=== PATIENT | female | born 1985 | race Caucasian/White ===

== ENCOUNTER 2020-08-18 17:26 | Emergency (ER) | payer OTHER ==
[~2020-08-18 17:26] MED LIST: FLAGYL500 MG PO; IBUPROFEN800 MG PO; LEVAQUIN500 MG PO; MAXALT10 MG PO; NORCO 5-325 TA1 EACH PO; RIZATRIPTAN10 MG PO; VISTARIL25 MG PO
[2020-08-18 20:09] LABS: HEMOGLOBIN 12.1 gm/dl (12.3-15.3); RED BLOOD COUNT 4.02 M/UL (4.00-5.10); WHITE BLOOD COUNT 15.7 K/UL (4.5-11.0)
[2020-08-18 20:28] LABS: BUN/CREATININE RATIO 9 (0-10)
[2020-08-18] MEDS ORDERED: AUGMENTIN 875-1 EACH PO (23:05)
[2020-08-18] MEDS ORDERED: ZOFRAN4 MG PO (23:05)
== END 2020-08-19 00:38 | disposition home or self-care (01) ==
LOC: ER1 17:26
PROVIDERS: Family Medicine
DX: K57.32 Diverticulitis of large intestine without perforation or abscess without bleeding (principal); F17.210 Nicotine dependence, cigarettes, uncomplicated
CPT/HCPCS: 80053; 81001; 83690; 84703; 85025; 96374; 96375; 99284; J1885; J2270; J2405; Q9967

== ENCOUNTER → 2021-07-28 | Outpatient (CLI) | payer OTHER ==
[~2021-07-28] MED LIST changes: +AUGMENTIN 875-1 EACH PO; +ZOFRAN4 MG PO
== END ==
LOC: EXRD 09:02
DX: R10.30 Lower abdominal pain, unspecified (principal)
CPT/HCPCS: 76700; 76856